=== PATIENT | male | born 1995 | race Caucasian/White ===

== ENCOUNTER 2020-09-20 10:04 | Emergency (ER) | payer OTHER ==
[~2020-09-20] VITALS: Ht 172.7 cm; Wt 72.6 kg
[2020-09-20] MEDS ORDERED: XANAX1 MG PO (10:26)
[2020-09-20] MEDS ORDERED: LEXAPRO20 MG PO (10:26)
[2020-09-20] MEDS ORDERED: ADDERALL 20 MG20 MG PO (10:26)
[2020-09-20] MEDS ORDERED: ABILIFY 5 MG TAB5 MG PO (10:26)
[2020-09-20 10:39] LABS: INFLUENZA A ANTIGEN Negative (Negative); INFLUENZA B ANTIGEN Negative (Negative)
[2020-09-20 10:53] LABS: CALCIUM 8.5 mg/dL (8.5-10.1); POTASSIUM 3.5 mmol/L (3.5-5.1)
[2020-09-20 10:58] LABS: ALBUMIN 3.8 g/dL (3.4-5.0); TOTAL BILIRUBIN 0.7 mg/dL (<0.1-1.0); TOTAL PROTEIN 7.2 g/dL (6.4-8.2)
[2020-09-20 11:04] LABS: PLATELET ESTIMATE ADEQUATE
[2020-09-20 11:29] LABS: ABSOLUTE LYMPHOCYTES 0.3 thou/uL (0.8-5.3); ABSOLUTE MONOCYTES 0.2 thou/uL (0.0-1.2); ABSOLUTE NEUTROPHILS 10.6 thou/uL (1.6-8.1); HEMOGLOBIN 13.4 gm/dL (14.0-18.0); MCH 29.4 pg (26.0-34.0); MCHC 34.3 g/dL (28.0-37.0); MCV 85.7 fL (80.0-100.0); PLATELET COUNT* 215 thou/uL (150-400); RBC 4.55 mil/uL (4.50-6.00); RDW-CV 13.7 % (10.5-14.5); WBC 11.2 thou/uL (4.0-11.0)
[2020-09-20 11:30] LABS: MPV 7.4 fl. (7.2-11.1)
[2020-09-20 12:27] LABS: URINE BILIRUBIN NEGATIVE (Negative); URINE BLOOD NEGATIVE (Negative); URINE CLARITY CLEAR; URINE COLOR YELLOW; URINE GLUCOSE-RANDOM NEGATIVE (Negative); URINE KETONES NEGATIVE (Negative); URINE LEUKOCYTES-REFLEX NEGATIVE (Negative); URINE NITRITE-REFLEX NEGATIVE (Negative); URINE PROTEIN NEGATIVE (Negative); URINE UROBILINOGEN 0.2 E.U./dl (0.2-1.0)
[2020-09-20 12:43] LABS: AMP/METHAMP POSITIVE (Negative); BARBITURATES Negative (Negative); BENZODIAZEPINES POSITIVE (Negative); COCAINE Negative (Negative); METHADONE Negative (Negative); OPIATES Negative (Negative); PCP Negative (Negative); THC POSITIVE (Negative)
[2020-09-20] MEDS ORDERED: AUGMENTIN 875-1 EACH PO (12:53)
[2020-09-20 13:12] VITALS: BP 131/81
== END 2020-09-20 13:16 | disposition home or self-care (01) ==
LOC: M.ERS 10:04
PROVIDERS: Emergency Medicine Emergency Medical Services
DX: B34.9 Viral infection, unspecified (principal); F19.10 Other psychoactive substance abuse, uncomplicated; Z88.5 Allergy status to narcotic agent; Z88.8 Allergy status to other drugs, medicaments and biological substances; Z20.822 Contact with and (suspected) exposure to COVID-19; Z79.899 Other long term (current) drug therapy